=== PATIENT | male | born 1985 | race African-American/Black ===

== ENCOUNTER 2022-11-15 08:10 | Emergency (ER) | payer BC ==
[~2022-11-15] VITALS: Ht 185.4 cm; Wt 106.6 kg
[2022-11-15] MEDS ORDERED: VERAPAMIL ER240 MG PO (08:34)
[2022-11-15] MEDS ORDERED: NORFLEX100MG PO (08:52)
[2022-11-15] MEDS ORDERED: DICLOFENAC SODI75 MG PO (08:52)
== END 2022-11-15 10:02 | disposition home or self-care (01) ==
LOC: ER 08:10
DX: M54.50 Low back pain, unspecified (principal); I10 Essential (primary) hypertension